=== PATIENT | female | born 2000 | race Native Hawaiian/Other Pacific Islander ===

== ENCOUNTER 2025-04-15 11:13 | Outpatient (CLI) | payer OTHER, SELFPAY ==
[2025-04-15 12:01] LABS: Hematocrit* 38.2 % (33.0-51.0); Hemoglobin* 13.1 gm/dL (12.0-16.0); Immature Granulocytes Abs Auto 0.02 K/uL (0.00-0.30); Immature Granulocytes Pct Auto 0.2 %; Lymphocytes Absolute Auto 1.20 K/uL (0.90-2.90); Mean Corpuscular HGB Conc 34 gm/dL (32-36); Mean Corpuscular Hemoglobin 32 pg (26-34); Mean Corpuscular Volume 93 fL (80-100); RDW Coefficient of Variation % 12.8 % (11.5-15.5); Red Blood Count* 4.12 m/uL (4.00-5.20); White Blood Count* 8.69 K/uL (4.50-11.00)
[2025-04-15 12:09] LABS: Slide Review Reflex No
[2025-04-15 13:54] LABS: Cannabinoid Screen Urine Negative (Negative); Methamphetamines Screen Urine Negative (Negative); Tricyclic Antidepressant Urine Negative (Negative)
[2025-04-15 14:04] LABS: Hepatitis B Surface Antigen* Negative (Negative)
[2025-04-15 14:13] LABS: HIV 1/2/P24 Combo Screen* Negative (Negative)
[2025-04-15 14:22] LABS: Hepatitis C Virus Antibody* Negative (Negative)
[2025-04-15 14:26] LABS: Hepatitis B Surface Antibody* Negative (Negative)
[2025-04-15 16:22] LABS: Chlamydia DNA Amplified* NOT DETECTED (No Detected); GC DNA Amplified* NOT DETECTED (No Detected)
[2025-04-16 21:24] LABS: Hepatitis B Core Antibodies Negative (Negative)
[2025-04-17 12:16] LABS: Hemoglobin - Other 0.0 % (0.0-0.0); Hemoglobin Cap ELP Not Performed
== END 2025-04-15 11:14 | disposition home or self-care (01) ==
PROVIDERS: Visit Provider Physician Assistant
DX: Z34.92 Encounter for supervision of normal pregnancy, unspecified, second trimester (principal)
CPT/HCPCS: 80306; 83020; 83021; 83036; 85025; 85660; 86592; 86703; 86704; 86706; 86762; 86787; 86803; 86850; 86900; 86901; 87086; 87340; 87491; 87591

== ENCOUNTER 2025-05-13 09:58 | Outpatient (CLI) | payer OTHER, SELFPAY ==
--- NOTE | 2025-05-13 10:15 | CRLHL7_ITS ---
For Patients: As a result of the Century Cures Act, medical imaging exams and procedure reports are released immediately into your electronic medical record. You may view this report before your referring provider. If you have questions, please contact your health care provider. OBSTETRICAL ULTRASOUND ??? ANATOMY SURVEY INDICATION: anatomy survey. CLINICAL HISTORY: EULALIA by ultrasound: 10/01/2025 Gestational age: 19 weeks 6 days TECHNIQUE: Real-time gallardo-scale transabdominal imaging of the fetus was performed. FINDINGS: position: Breech Cervix: Visualized Technique: Transabdominal Length of closed cervix: 4.4 cm Placenta position: Anterior Technique: Transabdominal Placenta tip to internal os: 6.4 cm Umbilical cord: 3-vessel cord Placental insertion: Eccentric Amniotic fluid: 4.6 cm SDP (greater than/equal to 2 to less than 8 cm) ANATOMY SURVEY: Observed Structures Cerebellum: Yes; 2.0 cm, 20 weeks 0 days Cisterna magna: Yes; 3.1 mm Nuchal fold: Yes; 4.8 mm Lateral ventricle: Yes; 5.6 mm CSP: Yes Midline falx: Yes Choroid plexus: Yes Spine: Yes Stomach: Yes Abdominal cord insert: Yes Urinary bladder: Yes Kidneys: Yes Diaphragm: Yes Nose/lips: Yes Orbital view: Yes Profile: Yes Upper extremities: Yes Lower extremities: Yes Hands: Yes Feet: Yes 4-chamber heart: Yes LVOT: Yes RVOT: Yes 3VV: Yes 3VTV: Yes BIOMETRY BPD: 4.4 cm, 19 weeks 2 days, 24.8% HC: 16.6 cm, 19 weeks 2 days, 17.3% AC: 16.9 cm, 21 weeks 6 days, 94.9% FL: 3.1 cm, 19 weeks 4 days, 32.2% FL/AC: 18.3% HC/AC ratio: 1.0 heart rate: 167 bpm age by this ultrasound: 20 weeks 0 days EULALIA by this ultrasound: 09/30/2025 Estimated weight: 366.5 grams (0 pounds 13 ounces) Percentile by EULALIA: 86.1% IMPRESSION: 1) Concordance of clinical and sonographic dating. 2) Normal anatomic survey. 3) Eccentric placental cord insertion. FILIPPO KIDD M.D. Diagnostic Radiologist [email or web address] Transcribed: 2:[address]/Dictated by: Filippo Kidd MD @ 05/13/2025 11:55:00 AM (Electronically Signed)
== END 2025-05-13 09:59 | disposition home or self-care (01) ==
LOC: US 09:58
PROVIDERS: Visit Provider Physician Assistant
DX: Z34.92 Encounter for supervision of normal pregnancy, unspecified, second trimester (principal); Z3A.19 19 weeks gestation of pregnancy
CPT/HCPCS: 76805